=== PATIENT | female | born 1955 | race Caucasian/White ===

== ENCOUNTER 2016-11-29 16:56 | Emergency (ER) | payer MEDICARE, MEDICAID ==
[2016-11-29 19:25] VITALS: BP 119/80
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
== END 2016-11-29 19:54 | disposition home or self-care (01) ==
LOC: ED 16:56
DX: Z76.0 Encounter for issue of repeat prescription (principal); I10 Essential (primary) hypertension; E78.00 Pure hypercholesterolemia, unspecified; J44.9 Chronic obstructive pulmonary disease, unspecified; K21.9 Gastro-esophageal reflux disease without esophagitis; M19.90 Unspecified osteoarthritis, unspecified site; M06.9 Rheumatoid arthritis, unspecified; F32.9 Major depressive disorder, single episode, unspecified; F03.90 Unspecified dementia, unspecified severity, without behavioral disturbance, psychotic disturbance, mood disturbance, and anxiety; Z79.82 Long term (current) use of aspirin; F17.200 Nicotine dependence, unspecified, uncomplicated
CPT/HCPCS: 99283

== ENCOUNTER 2016-12-17 18:40 | Emergency (ER) | payer MEDICARE, MEDICAID | END 2016-12-17 19:10 | disposition home or self-care (01) | DX: Z76.0 Encounter for issue of repeat prescription (principal); F41.9 Anxiety disorder, unspecified; I10 Essential (primary) hypertension; E78.00 Pure hypercholesterolemia, unspecified; K21.9 Gastro-esophageal reflux disease without esophagitis; M19.90 Unspecified osteoarthritis, unspecified site; M06.9 Rheumatoid arthritis, unspecified; Z79.82 Long term (current) use of aspirin; F17.200 Nicotine dependence, unspecified, uncomplicated ==

== ENCOUNTER 2017-05-16 22:29 | Outpatient (CLI) | payer MEDICARE, MEDICAID | END 2017-05-16 22:30 | disposition EMS.NT | LOC: EMS 22:29 | PROVIDERS: ATTEND Surgery | DX: Z03.89 Encounter for observation for other suspected diseases and conditions ruled out (principal) ==